=== PATIENT | male | born 1965 | race Caucasian/White ===

== ENCOUNTER 2020-08-04 16:53 | Emergency (ER) | payer SELFPAY ==
[2020-08-04] MEDS ORDERED: ASPIRIN 81 MG CHEWABLE TABLETS PO ONE (16:59)
[2020-08-04 17:00] VITALS: BMI 27.3
[2020-08-04] MEDS ORDERED: ASPIRIN 81 MG CHEWABLE TABLETS ONE (17:07)
[2020-08-04] MEDS ORDERED: NITROGLYCERIN SUBLINGUAL 1/150 0.4 MG TAB SL ONE (17:10)
[2020-08-04] MEDS ORDERED: HEPARIN NA (PORCINE) 5,000 UNITS/ML 1ML VIAL IVPUSH PRN ×2 (17:17→17:21)
[2020-08-04] MEDS ORDERED: HEPARIN NA (PORCINE) 5,000 UNITS/ML 1ML VIAL ONE (17:19)
[2020-08-04] MEDS ORDERED: HEPARIN INFUSION - 25,000 UNITS/500 ML INFUS.BAG IVPB ONE (17:23)
[2020-08-04] MEDS ORDERED: HEPARIN INFUSION - 25,000 UNITS/500 ML INFUS.BAG IVPB SCH (17:30)
[2020-08-04 17:59] LABS: BASO % 0.4 % (0-2.0); EOS % 2.3 % (0-4.5); HEMATOCRIT 42.1 % (35.4-49); HEMOGLOBIN 14.4 GM/dL (11.7-16.9); LYMPH % 12.2 % (8-40); MCH 32.2 pg (25.7-33.7); MCHC 34.1 g/dl (32.0-35.9); MEAN CELL VOLUME 94.4 fl (80-96); MEAN PLT VOLUME 8.4 fl (7.5-11.1); MONO % 5.6 % (3.8-10.2); NEUT % 79.5 % (42.8-82.8); PLATELET COUNT 211 K/MM3 (134-434); RBC 4.46 M/mm3 (4.00-5.60); RDW 12.9 % (11.9-15.9); WHITE BLOOD COUNT 14.8 K/mm3 (4.0-10.0)
[2020-08-04 18:09] LABS: INR 0.96 (0.83-1.09); PROTHROMBIN TIME (PATIENT) 11.8 SEC (9.7-13.0)
[2020-08-04 18:12] LABS: ACTIVATED PTT 28.8 SECONDS (25.2-36.5)
[2020-08-04 18:19] VITALS: BP 142/95; PULSE 72; TEMP 98.1
[2020-08-04 18:21] LABS: ALBUMIN 4.4 g/dl (3.4-5.0); BLOOD UREA NITROGEN 21.2 mg/dL (7-18); CALCIUM 9.1 mg/dL (8.5-10.1)
[2020-08-04 18:25] LABS: CREATININE 1.1 mg/dL (0.55-1.3)
[2020-08-04 18:26] LABS: BILIRUBIN,TOTAL 0.6 mg/dL (0.2-1); TOT PROT 7.3 g/dl (6.4-8.2)
== END 2020-08-04 18:00 | disposition short-term general hospital (02) ==
LOC: JER 16:53
PROC: 3E03329 Introduction of Other Anti-infective into Peripheral Vein, Percutaneous Approach (ICD-10-PCS; principal; 2020-08-04)
PROC: 3E033NZ Introduction of Analgesics, Hypnotics, Sedatives into Peripheral Vein, Percutaneous Approach (ICD-10-PCS; 2020-08-04)
DX: I21.3 ST elevation (STEMI) myocardial infarction of unspecified site (principal)
CPT/HCPCS: 36415; 80053; 82550; 84484; 85025; 85610; 85730; 93005; 93010; 99285-25; J1644